=== PATIENT | male | born 1990 | race Two or more races ===

== ENCOUNTER 2017-12-14 22:22 | Emergency (ER) | payer SELFPAY ==
[~2017-12-14] VITALS: Ht 177.8 cm; Wt 90.7 kg
[2017-12-14 22:26] VITALS: BP 118/74
[2017-12-14] MEDS ORDERED: NKM (22:40)
[2017-12-14] MEDS ORDERED: Ketorolac 60mg Inj IM ONE (22:45)
[2017-12-14] MEDS ORDERED: IBUPROFEN600 MG ORAL (22:48)
[2017-12-14] MEDS ORDERED: PREDNISONE20 MG ORAL (22:48)
--- NOTE | 2017-12-14 22:49 | Emergency Room Report ---
History of Present Illness General Chief Complaint: Pain Source: Patient Present Illness HPI Is a 27-year-old male with no past medical history. He recently emig[place] here to the [place] the last couple months. He been complaining of joint pain for the last month or so. Mostly in his shoulder elbow and knee area. No trauma. No fever chills but worse with movement. Nothing made it better. Denies any fever or chills. Denies any swelling. Allergies: Coded Allergies: No Known Allergies (Unverified , 12/14/17) Patient History Past Medical History: none, see triage record, old chart reviewed Past Surgical History: none Pertinent Family History: none Social History: Denies: smoking Immunizations: other Reviewed Nursing Documentation: PMH: Agreed; PSxH: Agreed Nursing Documentation-PMH Past Medical History: No Stated History Review of Systems Eye: Denies: eye pain, blurred vision ENT: Denies: ear pain, nose congestion, throat swelling Respiratory: Denies: cough, shortness of breath Cardiovascular: Denies: chest pain, palpitations Gastrointestinal: Denies: abdominal pain, diarrhea, nausea, vomiting Musculoskeletal: Reports: joint pain; Denies: back pain Skin: Denies: rash Neurological: Denies: headache, numbness Endocrine: Denies: increased thirst, increased urine Hematologic/Lymphatic: Denies: easy bruising All Other Systems: negative except mentioned in HPI Physical Exam Vital Signs Date Time Temp Pulse Resp B/P (MAP) Pulse Ox O2 Delivery O2 Flow Rate FiO2 12/14/17 22:26 97.7 76 18 118/74 97 Room Air 97.7 vitals normal Sp02 EP Interpretation: reviewed, normal General Appearance: well appearing, no apparent distress, alert Head: normocephalic, atraumatic Eyes: bilateral eye PERRL, bilateral eye EOMI ENT: hearing grossly normal, normal pharynx Neck: full range of motion, supple, no meningismus Respiratory: chest non-tender, lungs clear, normal breath sounds Cardiovascular #1: regular rate, rhythm, no murmur Gastrointestinal: normal bowel sounds, non tender, no mass, no organomegaly, no bruit, non-distended Musculoskeletal: back normal, gait/station normal, normal range of motion, tender - Over joints of the shoulder and knees. No redness or fever Psychiatric: mood/affect normal Skin: warm/dry Medical Decision Making Diagnostic Impression: Primary Impression: Arthralgia Qualified Codes: M25.50 - Pain in unspecified joint ER Course Patient presents with joint pain. This is most likely an autoimmune disease versus arthritis. No evidence of septic joint. We'll discharge home. You will need a referral to see a process laboratory specialist. This must be done through his primary care doctor. Last Vital Signs Date Time Temp Pulse Resp B/P (MAP) Pulse Ox O2 Delivery O2 Flow Rate FiO2 12/14/17 22:26 97.7 76 18 118/74 97 Room Air 97.7 Status: improved Disposition: HOME, SELF-CARE Condition: Stable Scripts Prednisone* (PREDNISONE*) 20 Mg Tablet 60 MG ORAL DAILY for 4 Days, #12 TAB Prov: KALEE WILCOX M.D. 12/14/17 Ibuprofen* (MOTRIN*) 600 Mg Tablet 600 MG ORAL THREE TIMES A DAY, #30 TAB 0 Refills Prov: KALEE WILCOX M.D. 12/14/17 Additional Instructions: Follow-up with your doctor in 7 days. You will need a referral to see a process laboratory specialist. Return if worse. KALEE WILCOX M.D. Dec 14, 2017 22:49
[2017-12-14 22:53] VITALS: BP 118/74
== END 2017-12-14 23:00 | disposition home or self-care (01) ==
LOC: EMR 23:00
DX: M25.529 Pain in unspecified elbow (principal); M25.569 Pain in unspecified knee
CPT/HCPCS: 96372; 99283; J7512